=== PATIENT | female | born 1950 | race African-American/Black ===

== ENCOUNTER 2021-04-16 00:15 | Inpatient (IN) | payer BC, OTHER ==
[~2021-04-16] VITALS: Ht 152.4 cm; Wt 102.5 kg
[2021-04-16] MEDS ORDERED: METHYLPREDNISOLONE SOD SUCC 125 MG/2 ML VIAL IV STA (00:25)
[2021-04-16] MEDS ORDERED: IPRATROPIUM BROMIDE (0.02%) 0.5MG/2.5ML NEB HHN STA (00:25)
[2021-04-16] MEDS ORDERED: MAGNESIUM 2 G PREMIX 50 ML IV ONE (00:30)
[2021-04-16] MEDS: ALBUTEROL (0.083%) 2.5MG/3ML NEB HHN SCH ×3 (00:36→01:27)
[2021-04-16 00:45] LABS: BASOPHILS % 0.5 % (0.0-2.0); EOSINOPHILS % 3.8 % (0.0-5.0); HEMOGLOBIN. 12.9 g/dL (12.0-16.0); LYMPHOCYTES % 39.5 % (20.0-50.0); MEAN CORPUSCULAR HEMOGLOBIN 26.1 pg (28.0-32.0); MEAN CORPUSCULAR VOLUME 80.8 fL (81.0-99.0); MEAN PLATELET VOLUME 8.2 fl (7.4-10.4); MONOCYTES % 9.8 % (2.0-8.0); NEUTROPHILS % 46.4 % (40.0-76.0); PLATELET 243 x1000/uL (130-400); RED BLOOD CELL COUNT 4.96 mill/uL (4.2-5.4); RED CELL DISTRIBUTION WIDTH 14.8 % (11.6-14.6)
[2021-04-16 00:49] LABS: CHLORIDE 104 mEq/L (98-107)
[2021-04-16 01:07] LABS: BG BASE EXCESS 3.4 mmol/L (-2.0-2.0); BG CARBOXYHEMOGLOBIN 0.3 % (0.5-1.5); BG DEOXYHEMOGLOBIN 0.3 % (0.0-5.0); BG FRACTION INSPIRED OXYGEN 100; BG HCO3 ACT 31.4 mmol/L (22.0-26.0); BG METHEMOGLOBIN 0.2 % (0.0-1.5); BG OXYGEN SATURATION 99.7 % (92.0-98.5); BG OXYHEMOGLOBIN 99.2 % (94.0-97.0); BG PH 7.315 (7.350-7.450); BG PO2 497.7 mmHg (75.0-100.0); BG SAMPLE SITE RIGHT RADIAL; BG TOTAL HEMOGLOBIN 13.7 g/dL (12.0-18.0); BG VENT MODE MASK - BIPAP
[2021-04-16] MEDS ORDERED: AZITHROMYCIN 500MG/250ML 250 ML IV ONE (01:15)
[2021-04-16] MEDS ORDERED: CEFTRIAXONE 1 G PREMIX 50 ML IV ONE (01:15)
[2021-04-16] MEDS ORDERED: ACETAMINOPHEN 325MG TABLET PO ONE (03:45)
[2021-04-16] MEDS ORDERED: DOCUSATE SODIUM 100MG CAPSULE PO PRN (21:15)
[2021-04-16] MEDS ORDERED: IPRATROPIUM/ALBUTEROL 0.5-3(2.5)MG/3ML NEB HHN PRN (21:15)
[2021-04-16] MEDS ORDERED: ZOLPIDEM TARTRATE 5MG TABLET PO PRN (21:15)
[2021-04-16] MEDS ORDERED: ACETAMINOPHEN 325MG TABLET PO PRN (21:15)
[2021-04-16] MEDS ORDERED: PREDNISONE 20MG TABLET PO NR (21:15)
[2021-04-16] MEDS: PREDNISONE 20MG TABLET PO SCH (21:30)
[2021-04-16] MEDS ORDERED: CARVEDILOL 6.25 MG TABLET PO NR (21:30)
[2021-04-16] MEDS ORDERED: LEVOFLOXACIN 500MG PREMIX 100 ML IV SCH (21:30)
[2021-04-16] MEDS: ENOXAPARIN 30MG/0.3ML SYR SUBCUT SCH (22:36)
[2021-04-16] MEDS ORDERED: IOHEXOL-350 100 ML BOTTLE ONE (23:13)
[2021-04-17] VITALS (8 sets, daily range): BP systolic 114–156; BP diastolic 60–82
[2021-04-17] MEDS ORDERED: OMEP20TA2 MT (03:55)
[2021-04-17] MEDS ORDERED: ASCO500C18 MT (03:55)
[2021-04-17] MEDS ORDERED: ALBU6.7H15 INH (03:55)
[2021-04-17] MEDS ORDERED: HYDR12.54 MT (03:55)
[2021-04-17] MEDS ORDERED: HYDR50SY PO (03:55)
[2021-04-17] MEDS ORDERED: AMLO5TAB88 MT (03:55)
[2021-04-17] MEDS ORDERED: HYDR50SY MT (03:55)
[2021-04-17] MEDS ORDERED: GABA-529 PO (03:55)
[2021-04-17] MEDS ORDERED: PROM6.254 MT (03:55)
[2021-04-17] MEDS: PREDNISONE 20MG TABLET PO SCH (08:53)
[2021-04-17] MEDS: CARVEDILOL 6.25 MG TABLET PO SCH ×2 (08:53→21:00)
[2021-04-17] MEDS: ENOXAPARIN 30MG/0.3ML SYR SUBCUT SCH ×2 (08:54→21:52)
[2021-04-17] MEDS: IPRATROPIUM/ALBUTEROL 0.5-3(2.5)MG/3ML NEB HHN SCH ×4 (09:09→22:09)
[2021-04-17 09:46] LABS: BG BASE EXCESS 3.5 mmol/L (-2.0-2.0); BG CARBOXYHEMOGLOBIN 0.7 % (0.5-1.5); BG DEOXYHEMOGLOBIN 4.1 % (0.0-5.0); BG FRACTION INSPIRED OXYGEN 21; BG HCO3 ACT 28.4 mmol/L (22.0-26.0); BG METHEMOGLOBIN 0.1 % (0.0-1.5); BG OXYGEN SATURATION 95.9 % (92.0-98.5); BG OXYHEMOGLOBIN 95.1 % (94.0-97.0); BG PCO2 43.7 mmHg (35.0-45.0); BG SAMPLE SITE LEFT RADIAL; BG TOTAL HEMOGLOBIN 13.6 g/dL (12.0-18.0); BG VENT MODE ROOM AIR
[2021-04-17 11:04] LABS: BASOPHILS % 0.3 % (0.0-2.0); HEMATOCRIT. 41.2 % (36.0-48.0); HEMOGLOBIN. 13.1 g/dL (12.0-16.0); MEAN CORPUSCULAR VOLUME 81.6 fL (81.0-99.0); MEAN PLATELET VOLUME 8.8 fl (7.4-10.4); MONOCYTES % 3.4 % (2.0-8.0); NEUTROPHILS % 88.3 % (40.0-76.0); PLATELET 261 x1000/uL (130-400); RED BLOOD CELL COUNT 5.05 mill/uL (4.2-5.4); RED CELL DISTRIBUTION WIDTH 14.8 % (11.6-14.6)
[2021-04-17 11:41] LABS: CHLORIDE 105 mEq/L (98-107)
[2021-04-17] MEDS ORDERED: P20 PO (12:08)
[2021-04-17] MEDS: GABAPENTIN 100MG CAPSULE PO SCH ×3 (13:13→16:53)
[2021-04-17] MEDS: AMLODIPINE 5MG TABLET PO SCH (13:14)
[2021-04-17] MEDS ORDERED: ACETAMINOPHEN WITH CODEINE 300/30MG TABLET PO NR (17:15)
[2021-04-17] MEDS ORDERED: IOHEXOL-350 100 ML BOTTLE ONE (20:58)
[2021-04-17] MEDS ORDERED: LEVOFLOXACIN 500MG TABLET PO SCH (21:00)
[2021-04-17] MEDS: FLUTICASONE PROPIONATE 50MCG/SPRAY BOTTLE BOTHNSTRLS SCH (21:49)
[2021-04-17] MEDS: PANTOPRAZOLE 40MG DR TABLET PO SCH (21:50)
[2021-04-18] VITALS: BP 122/62
[2021-04-18] MEDS: IPRATROPIUM/ALBUTEROL 0.5-3(2.5)MG/3ML NEB HHN SCH ×4 (01:46→13:06)
[2021-04-18 04:00] VITALS: BP 110/57
[2021-04-18] MEDS: PANTOPRAZOLE 40MG DR TABLET PO SCH (06:38)
[2021-04-18 08:00] VITALS: BP 123/70
[2021-04-18] MEDS: GABAPENTIN 100MG CAPSULE PO SCH ×2 (08:54→12:45)
[2021-04-18] MEDS: ENOXAPARIN 30MG/0.3ML SYR SUBCUT SCH (08:54)
[2021-04-18] MEDS: AMLODIPINE 5MG TABLET PO SCH (08:54)
[2021-04-18] MEDS: CARVEDILOL 6.25 MG TABLET PO SCH (08:54)
[2021-04-18] MEDS: PREDNISONE 20MG TABLET PO SCH (08:54)
[2021-04-18] MEDS: FLUTICASONE PROPIONATE 50MCG/SPRAY BOTTLE BOTHNSTRLS SCH (08:54)
[2021-04-18 12:00] VITALS: BP 129/68
[2021-04-18] MEDS ORDERED: P20 MT (13:58)
[2021-04-18] MEDS ORDERED: FAMOTIDINE 20MG TABLET PO SCH (21:00)
== END 2021-04-18 17:30 | disposition home or self-care (01) | DRG 189 ==
LOC: ER 00:15 → 8WST 03:21 → ENRESERV 22:20
PROVIDERS: ADMIT Ophthalmology; ATTEND Ophthalmology
PROC: 5A09357 Assistance with Respiratory Ventilation, Less than 24 Consecutive Hours, Continuous Positive Airway Pressure (ICD-10-PCS; principal; 2021-04-16)
DX: J96.02 Acute respiratory failure with hypercapnia (principal); J44.1 Chronic obstructive pulmonary disease with (acute) exacerbation; J45.901 Unspecified asthma with (acute) exacerbation; G47.33 Obstructive sleep apnea (adult) (pediatric); I10 Essential (primary) hypertension; Z20.822 Contact with and (suspected) exposure to COVID-19; M19.90 Unspecified osteoarthritis, unspecified site; K21.9 Gastro-esophageal reflux disease without esophagitis; Z88.2 Allergy status to sulfonamides; Z90.710 Acquired absence of both cervix and uterus
CPT/HCPCS: 36415; 36600; 71045; 71275; 80048; 80053; 82375; 82805; 83605; 83880; 84484; 85025; 85379; 87426; 93005; 93971; 94640; 94660; 99291; J0456; J0696; J1650; J1956; J2930; J3475; J7512; Q9967

== ENCOUNTER 2022-04-21 04:08 | Emergency (ER) | payer BC, OTHER ==
[~2022-04-21] VITALS: Ht 170.2 cm; Wt 109.0 kg
[~2022-04-21 04:08] MED LIST: ALBU6.7H15 INH; AMLO5TAB88 MT; ASCO500C18 MT; GABA-529 PO; OMEP20TA23 MT; P20 MT
[2022-04-21] MEDS ORDERED: IPRATROPIUM BROMIDE (0.02%) 0.5MG/2.5ML NEB HHN STA (04:27)
[2022-04-21] MEDS ORDERED: ALBUTEROL (0.083%) 2.5MG/3ML NEB HHN STA (04:27)
[2022-04-21] MEDS ORDERED: PREDNISONE 20MG TABLET PO STA (04:27)
[2022-04-21 06:04] LABS: BASOPHILS % 0.2 % (0.0-2.0); EOSINOPHILS % 1.5 % (0.0-5.0); HEMATOCRIT. 39.2 % (36.0-48.0); HEMOGLOBIN. 12.6 g/dL (12.0-16.0); LYMPHOCYTES % 21.5 % (20.0-50.0); MEAN CORPUSCULAR HEMOGLOBIN 26.5 pg (28.0-32.0); MEAN CORPUSCULAR VOLUME 82.3 fL (81.0-99.0); MEAN PLATELET VOLUME 8.3 fl (7.4-10.4); MONOCYTES % 9.1 % (2.0-8.0); NEUTROPHILS % 67.7 % (40.0-76.0); PLATELET 196 x1000/uL (130-400); RED BLOOD CELL COUNT 4.76 mill/uL (4.2-5.4)
[2022-04-21 06:08] LABS: CHLORIDE 105 mEq/L (98-107)
[2022-04-21] MEDS ORDERED: ACETAMINOPHEN 325MG TABLET PO ONE (08:00)
[2022-04-21] MEDS ORDERED: ALBU6.7H3 INH (08:15)
[2022-04-21] MEDS ORDERED: P20 MT (08:15)
[2022-04-21] MEDS ORDERED: D-ME118S48 PO (08:15)
[2022-04-21 08:43] VITALS: BP 143/78
== END 2022-04-21 08:55 | disposition home or self-care (01) ==
LOC: ER 04:08
DX: J44.1 Chronic obstructive pulmonary disease with (acute) exacerbation (principal); I10 Essential (primary) hypertension; J45.909 Unspecified asthma, uncomplicated; Z20.822 Contact with and (suspected) exposure to COVID-19; Z98.890 Other specified postprocedural states
CPT/HCPCS: 36415; 71045; 80053; 83880; 84484; 85025; 87426; 87804; 93005; 94640; 99285; J7512